=== PATIENT | female | born 1990 | race Caucasian/White ===

== ENCOUNTER 2016-12-08 12:04 | Emergency (ER) | payer SELFPAY ==
[~2016-12-08] VITALS: Ht 172.7 cm; Wt 63.5 kg
[2016-12-08 12:18] VITALS: BP 107/72
== END 2016-12-08 13:40 | disposition home or self-care (01) ==
LOC: ED 13:20
DX: S60.211A Contusion of right wrist, initial encounter (principal); S60.021A Contusion of right index finger without damage to nail, initial encounter; W01.0XXA Fall on same level from slipping, tripping and stumbling without subsequent striking against object, initial encounter; Y93.01 Activity, walking, marching and hiking; Y92.098 Other place in other non-institutional residence as the place of occurrence of the external cause; Y99.8 Other external cause status
CPT/HCPCS: 99284

== ENCOUNTER 2017-08-04 14:19 | Emergency (ER) | payer MEDICAID ==
[~2017-08-04] VITALS: Ht 172.7 cm; Wt 61.3 kg
[2017-08-04 14:22] VITALS: BP 125/86
== END 2017-08-04 14:52 | disposition home or self-care (01) ==
LOC: ED 14:46
DX: J01.20 Acute ethmoidal sinusitis, unspecified (principal); J01.10 Acute frontal sinusitis, unspecified; K08.89 Other specified disorders of teeth and supporting structures
CPT/HCPCS: 99283